=== PATIENT | female | born 1980 | race Caucasian/White ===

== ENCOUNTER 2019-11-19 23:49 | Emergency (ER) | payer OTHER ==
--- NOTE | 2019-11-20 00:04 | EDM.PDOC ---
ED HPI GENERAL MEDICAL PROBLEM - General Chief Complaint: Chest Pain Stated Complaint: CHEST PAIN/LEFT ARM PAIN Time Seen by Provider: 11/20/19 00:03 - History of Present Illness INITIAL COMMENTS - FREE TEXT/NARRATIVE: 39-year-old female presents the emergency room with left chest and arm pain. The patient gets this periodically. And is wondering if it is related to her anxiety. She has been had a lot of problems with it over the last couple of weeks but tonight seems to be much worse. This is been going on for several hours and reminds her very much like an anxiety attack. Patient has no prior coronary artery disease she does not smoke. However she has obesity and obstructive sleep apnea. Only history is negative for coronary artery disease however her mother has high blood pressure and murmur she does not have a history of diabetes. She does not smoke. Left Upper Chest Pain Score (Numeric/FACES): 3 - Related Data Allergies Allergy/AdvReac Type Severity Reaction Status Date / Time Penicillins Allergy Other Verified 11/19/19 23:59 Home Meds: Home Meds Zolpidem [Ambien] 5 mg PO BEDTIME 11/19/19 [History] Past Medical History Psychiatric History: Reports: Anxiety, Depression Social & Family History - Tobacco Use Smoking Status *Q: Never Smoker - Alcohol Use Days Per Week of Alcohol Use: 4 Number of Drinks Per Day: 3 Total Drinks Per Week: 12 - Recreational Drug Use Recreational Drug Use: No ED ROS GENERAL - Review of Systems Review Of Systems: See Below Constitutional: Reports: No Symptoms HEENT: Reports: No Symptoms Respiratory: Reports: No Symptoms Cardiovascular: Reports: Chest Pain Endocrine: Reports: No Symptoms GI/Abdominal: Reports: No Symptoms : Reports: No Symptoms Musculoskeletal: Reports: No Symptoms Neurological: Reports: No Symptoms ED EXAM, GENERAL - Physical Exam Exam: See Below Exam Limited By: No Limitations General Appearance: Alert Head: Atraumatic, Normocephalic Neck: Normal Inspection, Supple, Non-Tender, Full Range of Motion. No: Lymphadenopathy (L), Lymphadenopathy (R) Respiratory/Chest: No Respiratory Distress, Lungs Clear, Normal Breath Sounds Cardiovascular: Regular Rate, Rhythm, No Edema, No Murmur GI/Abdominal: Normal Bowel Sounds, Soft, Non-Tender Back Exam: Normal Inspection. No: CVA Tenderness (L), CVA Tenderness (R) Extremities: Normal Inspection, No Pedal Edema, Other (Tinel sign is negative arm Phalen's and reverse Phalen's is negative also.) EKG INTERPRETATION EKG Date: 11/20/19 Rhythm: Other (Normal sinus with mild sinus variability) [place]: Normal P-Wave: Present QRS: Normal ST-T: Normal QT: Normal Comparison: NA - No Prior EKG EKG Interpretation Comments: Normal EKG Course - Vital Signs Last Recorded V/S: Last Vital Signs Temp 37.1 C 11/19/19 23:57 Pulse 85 11/20/19 02:39 Resp 16 11/20/19 02:39 BP 118/69 11/20/19 02:39 Pulse Ox 99 11/20/19 02:39 - Orders/Labs/Meds Orders: Active Orders 24 hr Category Date Time Status EKG Documentation Completion [RC] ASDIRECTED Care 11/20/19 00:02 Active EKG 12 Lead [EK] Stat Ther 11/20/19 00:01 Ordered Labs: Laboratory Tests 11/20/19 11/20/19 11/20/19 Range/Units 00:02 00:02 02:05 WBC 6.42 (3.98-10.04) K/mm3 RBC 4.64 (3.98-5.22) M/mm3 Hgb 13.0 (11.2-15.7) gm/dl Hct 38.4 (34.1-44.9) % MCV 82.8 (79.4-94.8) fl MCH 28.0 (25.6-32.2) pg MCHC 33.9 (32.2-35.5) g/dl RDW Std Deviation 39.3 (36.4-46.3) fL Plt Count 257 (182-369) K/mm3 MPV 8.8 L (9.4-12.3) fl Neut % (Auto) 65.8 (34.0-71.1) % Lymph % (Auto) 22.0 (19.3-51.7) % [place] % (Auto) 10.4 (4.7-12.5) % Eos % (Auto) 1.1 (0.7-5.8) Baso % (Auto) 0.2 (0.1-1.2) % Neut # (Auto) 4.23 (1.56-6.13) K/mm3 Lymph # (Auto) 1.41 (1.18-3.74) K/mm3 [place] # (Auto) 0.67 H (0.24-0.36) K/mm3 Eos # (Auto) 0.07 (0.04-0.36) K/mm3 Baso # (Auto) 0.01 (0.01-0.08) K/mm3 Sodium 139 (136-145) mEq/L Potassium 3.6 (3.5-5.1) mEq/L Chloride 101 (98-107) mEq/L Carbon Dioxide 27 (21-32) mEq/L Anion Gap 14.6 (5-15) BUN 10 (7-18) mg/dL Creatinine 0.7 (0.55-1.02) mg/dL Est Cr Clr Drug Dosing 83.65 mL/min Estimated GFR (MDRD) > 60 (>60) mL/min BUN/Creatinine Ratio 14.3 (14-18) Glucose 114 H (74-106) mg/dL Calcium 8.8 (8.5-10.1) mg/dL Total Bilirubin 0.3 (0.2-1.0) mg/dL AST 22 (15-37) U/L ALT 37 (14-59) U/L Alkaline Phosphatase 67 (46-116) U/L Troponin I 0.056 0.047 (0.00-0.056) ng/mL Total Protein 8.1 (6.4-8.2) g/dl Albumin 3.6 (3.4-5.0) g/dl Globulin 4.5 gm/dL Albumin/Globulin Ratio 0.8 L (1-2) - Re-Assessments/Exams Free Text/Narrative Re-Assessment/Exam: 11/20/19 02:40 Has done well during her stay here in the emergency room her initial troponin came back in the normal range however at the upper end of the normal range I discussed this with her and we decided to check it again after couple hours second troponin came back trending downward. The patient would like to go home at this time Departure - Departure Time of Disposition: 02:41 Disposition: Home, Self-Care 01 Clinical Impression: Chest pain, Anxiety Referrals: Laura Garrett NP [Primary Care Provider] - Forms: ED Department Discharge, ED Summary Discharge Additional Instructions: Return to the emergency room with any questions problems or worsening symptoms. Follow-up with your regular healthcare provider later this week and discuss possible cardiac stress testing and potential treatment for your anxiety. We sent you home with a pill to help you sleep and for your anxiety do not take it with your Ambien. Sepsis Event Note - Evaluation Sepsis Screening Result: No Definite Risk - Focused Exam Vital Signs: Vital Signs Temp Pulse Resp BP Pulse Ox 11/20/19 02:39 85 16 118/69 99 11/19/19 23:57 37.1 C 96 16 181/97 H 98 Date Exam was Performed: 11/20/19 Time Exam was Performed: 02:39 - My Orders Last 24 Hours: My Active Orders 11/20/19 00:01 EKG 12 Lead [EK] Stat 11/20/19 00:02 EKG Documentation Completion [RC] ASDIRECTED - Assessment/Plan Last 24 Hours: My Active Orders 11/20/19 00:01 EKG 12 Lead [EK] Stat 11/20/19 00:02 EKG Documentation Completion [RC] ASDIRECTED
[2019-11-20] MEDS ORDERED: LORazepam 1 MG Tab PO ONE (02:40)
== END 2019-11-20 02:53 | disposition home or self-care (01) ==
LOC: JD.ED 23:49
DX: F41.9 Anxiety disorder, unspecified (principal); Z88.0 Allergy status to penicillin; F32.9 Major depressive disorder, single episode, unspecified; E66.9 Obesity, unspecified; Z68.41 Body mass index [BMI] 40.0-44.9, adult; Z79.899 Other long term (current) drug therapy
CPT/HCPCS: 36415; 80053; 84484; 85025; 93005; 99285; A9270; 93010; 99283